=== PATIENT | male | born 1970 | race Caucasian/White ===

== ENCOUNTER 2018-12-08 01:46 | Inpatient (IN) | payer OTHER ==
[2018-12-08] MEDS ORDERED: HYDROCODONE/APAP (5/325) TAB PO ×2 (03:00)
[2018-12-08] MEDS ORDERED: ONDANSETRON 4 MG INJ IV (03:00)
[2018-12-08] MEDS ORDERED: ACETAMINOPHEN 325 MG TAB PO (03:00)
[2018-12-08] MEDS ORDERED: NACL 0.9% 3 ML SYG IV (03:00)
[2018-12-08] MEDS ORDERED: ALBUTEROL/IPRATROPIUM (NEB) 3 ML AMP HHN (03:00)
[2018-12-08] MEDS: SOD CHLORIDE 0.9% 1,000 ML IV ×3 (03:39→16:02)
[2018-12-08] MEDS: TAMSULOSIN (SR) 0.4 MG CAP PO (03:39)
[2018-12-08 06:06] LABS: ADD MAN DIFF? NO
[2018-12-08 06:15] LABS: WHITE BLOOD COUNT 10.8 10^3/ul (4.8-10.8)
[2018-12-08 06:15] LABS: BASOPHIL # 0.1 10^3/ul (0.0-0.1); BASOPHILS % 0.6 % (0.0-2.0); EOSINOPHILS # 0.1 10^3/ul (0.0-0.5); EOSINOPHILS % 0.6 % (0.0-7.0); HEMATOCRIT 38.7 % (42.0-52.0); HEMOGLOBIN 12.9 g/dl (14.0-18.0); LYMPHOCYTES # 1.5 10^3/ul (0.8-2.9); LYMPHOCYTES % 13.4 % (15.0-51.0); MEAN CORPUSCULAR HEMOGLOBIN 30.4 pg (29.0-33.0); MEAN CORPUSCULAR HGB CONC 33.3 g/dl (32.0-37.0); MEAN CORPUSCULAR VOLUME 91.1 fl (82.0-101.0); MEAN PLATELET VOLUME 9.7 fl (7.4-10.4); MONOCYTE # 0.6 10^3/ul (0.3-0.9); MONOCYTES % 5.2 % (0.0-11.0); NEUTROPHIL # 8.7 10^3/ul (1.6-7.5); NEUTROPHILS % 79.8 % (39.0-77.0); PLATELET COUNT 219 10^3/UL (140-415); RED BLOOD COUNT 4.25 10^6/ul (4.70-6.10); RED CELL DISTRIBUTION WIDTH 13.3 % (11.5-14.5)
[2018-12-08 06:31] LABS: ALANINE AMINOTRANSFERASE 34 IU/L (13-69); ALBUMIN 3.6 g/dl (3.3-4.9); ALBUMIN/GLOBULIN RATIO 1.09; ALKALINE PHOSPHATASE 57 IU/L (42-121); ANION GAP 8 (5-13); ASPARTATE AMINO TRANSFERASE 23 IU/L (15-46); BILIRUBIN,INDIRECT 0.7 mg/dl (0-1.1); BILIRUBIN,TOTAL 0.7 mg/dl (0.2-1.3); BLOOD UREA NITROGEN 15 mg/dl (7-20); CALCIUM 8.4 mg/dl (8.4-10.2); CARBON DIOXIDE 25 mmol/L (21-31); CHLORIDE 108 mmol/L (97-110); CREATININE 0.99 mg/dl (0.61-1.24); Estimated GFR > 60 mL/min (>60); GLUCOSE 122 mg/dl (70-220); MAGNESIUM 1.8 mg/dl (1.7-2.5); PHOSPHORUS 3.1 mg/dl (2.5-4.9); POTASSIUM 4.5 mmol/L (3.5-5.1); SODIUM 141 mmol/L (135-144); TOTAL PROTEIN 6.9 g/dl (6.1-8.1)
[2018-12-08 07:38] LABS: HEMOGLOBIN A1C 5.5 % (0-5.9)
[2018-12-08] MEDS: CEFTRIAXONE 1 GM/50 ML (PMX) 50 ML IVPB (08:37)
[2018-12-08 09:50] LABS: ADD UMIC YES; UR ASCORBIC ACID NEGATIVE (NEGATIVE); UR BILIRUBIN (Dip) NEGATIVE (NEGATIVE); UR BLOOD (Dip) 2+ mg/dL (NEGATIVE); UR CLARITY CLEAR (CLEAR); UR COLOR YELLOW (YELLOW); UR GLUCOSE (Dip) NEGATIVE (NEGATIVE); UR KETONES (Dip) NEGATIVE (NEGATIVE); UR LEUKOCYTE ESTERASE (Dip) NEGATIVE Leu/ul (NEGATIVE); UR MUCUS FEW /HPF (NONE SEEN); UR NITRITE (Dip) NEGATIVE (NEGATIVE); UR RBC 33 /HPF (0-5); UR SPECIFIC GRAVITY (Dip) 1.016 (1.003-1.030); UR TOTAL PROTEIN (Dip) NEGATIVE (NEGATIVE); UR UROBILINOGEN (Dip) NEGATIVE (NEGATIVE); UR WBC 1 /HPF (0-5)
[2018-12-08 21:13] LABS: INR 0.93; PARTIAL THROMBOPLASTIN TIME 25.2 Sec (23.0-35.0); PROTIME 12.6 Sec (11.9-14.9)
[2018-12-09] MEDS: SOD CHLORIDE 0.9% 1,000 ML IV ×3 (04:04→20:02)
[2018-12-09 06:28] LABS: ADD MAN DIFF? NO
[2018-12-09 06:31] LABS: WHITE BLOOD COUNT 8.9 10^3/ul (4.8-10.8)
[2018-12-09 06:31] LABS: BASOPHIL # 0.1 10^3/ul (0.0-0.1); BASOPHILS % 0.6 % (0.0-2.0); EOSINOPHILS # 0.6 10^3/ul (0.0-0.5); EOSINOPHILS % 6.2 % (0.0-7.0); HEMATOCRIT 39.4 % (42.0-52.0); LYMPHOCYTES # 2.6 10^3/ul (0.8-2.9); LYMPHOCYTES % 29.5 % (15.0-51.0); MEAN CORPUSCULAR HEMOGLOBIN 30.1 pg (29.0-33.0); MEAN CORPUSCULAR VOLUME 91.2 fl (82.0-101.0); MEAN PLATELET VOLUME 9.8 fl (7.4-10.4); MONOCYTE # 0.8 10^3/ul (0.3-0.9); MONOCYTES % 8.6 % (0.0-11.0); NEUTROPHIL # 4.9 10^3/ul (1.6-7.5); NEUTROPHILS % 54.9 % (39.0-77.0); PLATELET COUNT 237 10^3/UL (140-415); RED BLOOD COUNT 4.32 10^6/ul (4.70-6.10); RED CELL DISTRIBUTION WIDTH 13.3 % (11.5-14.5)
[2018-12-09 06:45] LABS: ANION GAP 5 (5-13); BLOOD UREA NITROGEN 11 mg/dl (7-20); CALCIUM 8.6 mg/dl (8.4-10.2); CARBON DIOXIDE 27 mmol/L (21-31); CHLORIDE 108 mmol/L (97-110); CREATININE 0.92 mg/dl (0.61-1.24); Estimated GFR > 60 mL/min (>60); GLUCOSE 92 mg/dl (70-220); PHOSPHORUS 2.5 mg/dl (2.5-4.9); SODIUM 140 mmol/L (135-144)
[2018-12-09] MEDS: CEFTRIAXONE 1 GM/50 ML (PMX) 50 ML IVPB (09:52)
[2018-12-09] MEDS ORDERED: IOHEXOL 300MG/ML 30 ML BTL (17:09)
[2018-12-09] MEDS ORDERED: PROPOFOL 100 ML (17:27)
[2018-12-09] MEDS ORDERED: FENTAnyl 50 MCG/ML VIAL (17:34)
[2018-12-09] MEDS ORDERED: LIDOCAINE 2% (SDV) 5 ML INJ (17:34)
[2018-12-09] MEDS ORDERED: CEFAZOLIN 1 GM INJ (17:59)
[2018-12-09] MEDS ORDERED: LIDOCAINE 2% 20 ML UROJET SYRINGE (18:01)
[2018-12-09] MEDS ORDERED: OXYCODONE/ACETAMINOPHEN (5/325) TAB PO ×2 (19:00)
[2018-12-09] MEDS ORDERED: EPHEDrine 25 MG/5 ML SYG IV (19:00)
[2018-12-09] MEDS ORDERED: METOCLOPRAMIDE 10 MG INJ IV (19:00)
[2018-12-09] MEDS ORDERED: LABETALOL HCL 20MG INJ IV (19:00)
[2018-12-09] MEDS ORDERED: ONDANSETRON 4 MG INJ IV (19:00)
[2018-12-09] MEDS ORDERED: FENTAnyl 50 MCG/ML VIAL IV ×3 (19:00)
[2018-12-09] MEDS ORDERED: hydrALAzine 20 MG INJ IV (19:00)
[2018-12-09] MEDS ORDERED: MEPERIDINE 25 MG INJ IV (19:00)
[2018-12-09] MEDS ORDERED: ALBUTEROL 0.083% (NEB) 2.5 MG/3 ML AMP HHN (19:00)
[2018-12-10] MEDS: SOD CHLORIDE 0.9% 1,000 ML IV (05:21)
[2018-12-10] MEDS: CEFTRIAXONE 1 GM/50 ML (PMX) 50 ML IVPB (08:46)
== END 2018-12-10 13:45 | disposition home or self-care (01) | DRG 661 ==
LOC: PP2 01:46
PROC: 0T768DZ Dilation of Right Ureter with Intraluminal Device, Via Natural or Artificial Opening Endoscopic (ICD-10-PCS; principal; 2018-12-09 17:30)
DX: N13.2 Hydronephrosis with renal and ureteral calculous obstruction (principal); D64.9 Anemia, unspecified
CPT/HCPCS: 71045; 74018; 74430; 80048; 80053; 81001; 83036; 83735; 84100; 85025; 85610; 85730; 87081; 87086; 93005

== ENCOUNTER 2019-01-07 08:43 | Day surgery (SDC) | payer OTHER ==
[2019-01-07] MEDS ORDERED: MIDAZOLAM 1 MG/ML 2 ML INJ (09:55)
[2019-01-07] MEDS ORDERED: FENTAnyl 50 MCG/ML VIAL ×2 (09:55→12:22)
[2019-01-07] MEDS ORDERED: LABETALOL HCL 20MG INJ IV (10:00)
[2019-01-07] MEDS ORDERED: ONDANSETRON 4 MG INJ IV (10:00)
[2019-01-07] MEDS ORDERED: OXYCODONE/ACETAMINOPHEN (5/325) TAB PO (10:00)
[2019-01-07] MEDS ORDERED: HYDROmorphONE 1 MG/5 ML IV SYRINGE IV ×2 (10:00)
[2019-01-07] MEDS ORDERED: FENTAnyl 50 MCG/ML VIAL IV (10:00)
[2019-01-07] MEDS ORDERED: PROPOFOL 200 MG INJ (11:20)
[2019-01-07] MEDS ORDERED: LIDOCAINE 2% (SDV) 5 ML INJ (11:20)
[2019-01-07] MEDS ORDERED: CEFAZOLIN 1 GM INJ (11:22)
[2019-01-07] MEDS ORDERED: DEXAMETHASONE 4 MG/ML 5 ML INJ (11:43)
[2019-01-07] MEDS ORDERED: ONDANSETRON 4 MG INJ (11:43)
[2019-01-07] MEDS: FENTAnyl 50 MCG/ML VIAL IV ×2 (13:20→13:26)
[2019-01-07] MEDS: HYDROCODONE/APAP (5/325) TAB PO (13:28)
== END 2019-01-07 14:20 | disposition home or self-care (01) ==
LOC: SDS 08:43
DX: N20.1 Calculus of ureter (principal)
CPT/HCPCS: 52356; 74018; 74430; 88300